=== PATIENT | male | born 1940 | race Caucasian/White ===

== ENCOUNTER → 2018-02-01 | Outpatient (CLI) | payer OTHER, BC ==
[~2018-02-01] MED LIST: ALFU10TA2 PO; BALS1CAP2 PO; DUTA0.5C PO; MULT60CA PO
[2018-02-01 16:37] LABS: BASO % 0.3 %; BASO ABS # 0.02 K/uL (0-0.2); EOS % 1.6 %; HEMOGLOBIN 16.6 g/dL (14.0-18.0); IG# 0.01 K/uL (0.00-0.02); LYMPH % 19.3 %; MEAN CELL VOLUME 91.4 fL (80-100); MEAN CORPUSCULAR HGB CONC 33.9 g/dl (32-36); MONO % 6.8 %; MONO ABS # 0.42 K/uL (0.11-0.59); NEUT % 71.8 %; NEUT ABS # 4.47 K/uL (1.4-6.5); PLATELET COUNT 190 K/uL (130-400); RED CELL DISTRIBUTION WIDTH CV 13.4 % (11.5-14.5); RED CELL DISTRIBUTION WIDTH SD 44.5 fL (36.4-46.3); WHITE BLOOD COUNT 6.22 K/uL (4.8-10.8)
--- NOTE | 2018-02-01 16:38 | DIAGNOSTIC IMAGING REPORT ---
TWO VIEW CHEST CLINICAL HISTORY: Preoperative examination. FINDINGS: PA and lateral chest radiographs are obtained. No prior studies are available for comparison at the time of dictation. The PA view is degraded by patient rotation The heart is enlarged. The pulmonary vasculature is noncongested. There is bibasilar atelectasis. No airspace consolidation or large pleural effusion is identified. There is no pneumothorax. The skeletal structures are osteopenic. The bony thorax appears intact. IMPRESSION: Cardiomegaly with no active disease in the chest. Electronically signed by: Diego Lowery M.D. 02/01/2018 4:36 PM Dictated Date/Time: 02/01/2018 4:36 PM
[2018-02-01 17:14] LABS: ALBUMIN 3.6 gm/dl (3.4-5.0); ALKALINE PHOSPHATASE 64 U/L (45-117); ALT/SGPT 27 U/L (12-78); AST/SGOT 20 U/L (15-37); BLOOD UREA NITROGEN 21 mg/dl (7-18); CALCIUM 9.2 mg/dl (8.5-10.1); CARBON DIOXIDE 29 mmol/L (21-32); GLUCOSE 94 mg/dl (70-99); SODIUM 138 mmol/L (136-145); TOTAL PROTEIN 7.7 gm/dl (6.4-8.2)
== END | disposition home or self-care (01) ==
LOC: C.CPL 16:00
PROVIDERS: ATTEND Urology
DX: N40.1 Benign prostatic hyperplasia with lower urinary tract symptoms (principal); I51.7 Cardiomegaly

== ENCOUNTER 2018-02-12 04:58 | Day surgery (SDC) | payer OTHER, BC ==
[2018-02-06 10:45] VITALS: Ht 175.3 cm; Wt 111.4 kg
[~2018-02-12] VITALS: Ht 175.3 cm; Wt 111.4 kg
[2018-02-12 05:29] VITALS: BP 158/87; PULSE 76; TEMP 36.7; O2SAT 96
[2018-02-12] MEDS ORDERED: LACTATED RINGER'S 1000ML 1,000 ML IV SCH (06:00)
--- NOTE | 2018-02-12 06:50 | History & Physical Bridge Note ---
H&P Re-Evaluation Bridge Note: I have examined the patient, reviewed the History & Physical and in the interval since the performance of the History & Physical I have noted the following changes of clinical significance: No changes noted
[2018-02-12] MEDS ORDERED: Cysto-Conray II 17.2% 250ML BOTTLE ONE (06:52)
[2018-02-12] MEDS ORDERED: NEOMYCIN/POLYMYX/HYDROCORT OT SUSP 10 ML BTL ONE (06:53)
[2018-02-12] MEDS ORDERED: LIDOCAINE HCL 2% 2 ML VIAL (20MG/ML) ONE (07:04)
[2018-02-12] MEDS ORDERED: PROPOFOL IV EMULSION 10 MG/ML 20 ML VIAL IV ONE (07:04)
[2018-02-12] MEDS ORDERED: FENTANYL CITRATE INJ 50 MCG/1 ML 2 ML VIAL ONE (07:04)
[2018-02-12] MEDS ORDERED: ONDANSETRON INJ 2 MG/ML 2 ML VIAL ONE (07:04)
[2018-02-12] MEDS ORDERED: MIDAZOLAM HCL 1 MG/ML 2ML VIAL ONE (07:04)
[2018-02-12] MEDS: CIPROFLOXACIN / D5W 400 MG IV SCH ×2 (07:24→07:25)
[2018-02-12] MEDS ORDERED: PHENYLEPHRINE 100MCG/ML 5ML SYR ONE (07:41)
[2018-02-12] MEDS ORDERED: EpHEDrine SULFATE 50MG/5ML SYR ONE (07:41)
[2018-02-12] MEDS ORDERED: OXYC-57 PO (08:21)
--- NOTE | 2018-02-12 08:21 | [facility] Post Operative Brief Note ---
Immediate Operative Summary Operative Date Feb 12, 2018. Pre-Operative Diagnosis Lower urinary tract symptoms with bladder stone Post-Operative Diagnosis Lower urinary tract symptoms with bladder stone Procedure(s) Performed Urethral Dilation; Cystoscopy; Cystolithopaxy Surgeon Dr. Mt Baptiste Line Production Cook Surgeon(s) None Estimated Blood Loss 0 mL Findings Consistent with Post-Op Diagnosis Specimens Permanent specimens A: Bladder Stone for chemical analysis Drains None Anesthesia Type General Complication(s) none Disposition Accompanied Pt To Recover: yes Disposition: Recovery Room / PACU
--- NOTE | 2018-02-12 08:22 | Discharge Instructions ---
Discharge Instructions Date of Service Feb 12, 2018. Visit Reason for Visit: Bladder Stone Discharge Discharge Diagnosis / Problem: Bladder stone Discharge Goals Goal(s): Therapeutic intervention Activity Recommendations Activity Limitations: per Instructions/Follow-up section Exercise/Sports Limitations: rest today May Resume Sexual Activity: when tolerated Shower/Bathe: no limitations Driving or Machine Use: resume 1 day after discharge Anesthesia . Post Anesthesia Instructions: If you have had General Anesthesia or IV Sedation: * Do not drive today. * Resume driving when surgeon permits. * Do not make important decisions or sign legal documents today. * Call surgeon for: 1. Temperature elevations greater than 101 degrees F. 2. Uncontrollable pain. 3. Excessive bleeding. 4. Persistent nausea and vomiting. 5. Medication intolerance (nausea, vomiting or rash). * For nausea and vomiting use only clear liquids such as: tea, soda, bouillon until nausea subsides, then gradually increase diet as tolerated. * If you have any concerns or questions, call your surgeon's office. If physician is unavailable and it is an emergency, call 911 or go to the nearest emergency room. . Diet Recommendations Recommended Home Diet: resume previous diet Procedures Procedures Performed: Urethral Dilation; Cystoscopy; Cystolithopaxy Pending Studies Studies pending at discharge: no Medical Emergencies . Who to Call and When: Medical Emergencies: If at any time you feel your situation is an emergency, please call 911 immediately. . Non-Emergent Contact Non-Emergency issues call your: Urologist Call Non-Emergent contact if: temperature is above 101.5, your pain is not controlled . . "Provider Documentation" section prepared by Mt Baptiste. . [place] Drug Monitoring Program Search Results: patient reviewed within database
[2018-02-12] MEDS ORDERED: ATROPINE SULFATE 0.1 MG/ML 5ML SYR IV PRN (08:30)
[2018-02-12] MEDS ORDERED: FENTANYL CITRATE INJ 50 MCG/1 ML 2 ML VIAL IV PRN (08:30)
[2018-02-12] MEDS ORDERED: ONDANSETRON INJ 2 MG/ML 2 ML VIAL IV PRN (08:30)
[2018-02-12] MEDS ORDERED: LABETALOL HCL IV 5 MG/ML 20ML IV PRN (08:30)
[2018-02-12] MEDS ORDERED: OXYCODONE/ACETAMINOPHEN 5-325 TAB PO PRN (08:30)
[2018-02-12 09:00] VITALS: BP 150/77; PULSE 67; TEMP 36.6; O2SAT 96
--- NOTE | 2018-02-12 09:26 | Anesthesiology Progress Note ---
Anesthesia Post Op Note Date & Time Feb 12, 2018 at 09:25 Vital Signs Pain Intensity: 0 Vital Signs Past 12 Hours Date Time Temp Pulse Resp B/P (MAP) Pulse Ox O2 Delivery O2 Flow Rate FiO2 02/12/18 08:52 66 13 02/12/18 08:52 66 13 94 02/12/18 08:51 137/84 02/12/18 08:51 137/84 02/12/18 08:47 66 16 94 02/12/18 08:47 66 16 02/12/18 08:47 66 16 02/12/18 08:47 66 16 94 02/12/18 08:46 142/79 02/12/18 08:45 66 14 95 02/12/18 08:45 66 14 02/12/18 08:41 136/84 02/12/18 08:40 64 16 02/12/18 08:40 64 16 99 02/12/18 08:38 36.5 65 17 136/84 (92) 99 Room Air 02/12/18 08:36 141/84 02/12/18 08:35 68 24 100 02/12/18 08:35 68 24 02/12/18 08:34 165/94 02/12/18 08:31 161/96 02/12/18 08:30 67 16 02/12/18 08:30 69 16 99 02/12/18 08:26 144/86 02/12/18 08:25 69 13 99 02/12/18 08:25 70 13 02/12/18 08:22 142/94 02/12/18 08:20 77 15 02/12/18 08:20 76 15 98 02/12/18 08:16 127/77 02/12/18 08:15 64 02/12/18 08:15 64 98 02/12/18 08:15 36.1 63 18 127/77 (92) 99 Oxymask 10 02/12/18 05:29 36.7 76 18 158/87 (110) 96 Room Air Notes Mental Status: alert / awake / arousable, participated in evaluation Pt Amnestic to Procedure: Yes Nausea / Vomiting: adequately controlled Pain: adequately controlled Airway Patency, RR, SpO2: stable & adequate BP & HR: stable & adequate Hydration State: stable & adequate Anesthetic Complications: no major complications apparent
[2018-02-12 09:30] VITALS: BP 166/81; PULSE 66; O2SAT 97
[2018-02-12] MEDS ORDERED: OXYCODONE/ACETAMINOPHEN 5-325 TAB ONE (09:30)
[2018-02-12 10:00] VITALS: BP 156/89; PULSE 63; TEMP 36.3; O2SAT 96
--- NOTE | 2018-02-12 10:01 | [facility] Operative Report ---
Operative Report Operative Date Feb 12, 2018. Pre-Operative Diagnosis Lower urinary tract symptoms with bladder stone Post-Operative Diagnosis Lower urinary tract symptoms with bladder stone Procedure(s) Performed Urethral Dilation; Cystoscopy; Cystolithopaxy Surgeon Dr. Mt Baptiste Stockroom Attendant Surgeon(s) None Estimated Blood Loss 0 mL Findings Patient had a tight fossa navicularis anterior urethra on cystoscopic exam was otherwise unremarkable prostatic fossa was obstructing with kissing lateral lobes and a very elevated median lobe. Bladder showed 1-2+ trabeculation with cellules there were no bladder tumors seen. There was a 12 mm bladder stone Specimens Permanent specimens A: Bladder Stone for chemical analysis Drains None Anesthesia Type General Complication(s) none Disposition yes Recovery Room / PACU Indications Patient is a 77-year-old white male who on workup for hematuria was found to have a bladder stone being brought in for cystolitholapaxy. Description of Procedure After the induction of an adequate general anesthetic and appropriate timeout patient was placed in the dorsal lithotomy position. Lower abdomen and genitalia were prepped with Hibiclens draped in sterile fashion. Fossa navicularis was tight so was dilated to 28 Czech with Maribel sounds. Next routine cystoscopic exam was performed with the above-noted findings with 30 and 70 lenses. Next a 24 Czech resection sheath and laser bridge were inserted per urethra into the bladder holmium laser was then used to fragment the stone into multiple small pieces which were then evacuated with an Vivox evacuator. After completing this the bladder was reinspected there were no sites of bleeding bladder was drained resection scope and sheath removed. All needle sponge and Ritsema counts were correct at the end of the case. Patient tolerated the procedure well and was taken to recovery room in stable condition I attest to the content of the Intraoperative Record and any orders documented therein. Any exceptions are noted below.
== END 2018-02-12 10:25 | disposition home or self-care (01) ==
LOC: C.ACU 04:58
PROVIDERS: ATTEND Urology
DX: R39.9 Unspecified symptoms and signs involving the genitourinary system (principal); N21.0 Calculus in bladder; N40.1 Benign prostatic hyperplasia with lower urinary tract symptoms; N13.9 Obstructive and reflux uropathy, unspecified; G47.33 Obstructive sleep apnea (adult) (pediatric); Z88.2 Allergy status to sulfonamides; Z85.828 Personal history of other malignant neoplasm of skin; Z90.89 Acquired absence of other organs; Z98.890 Other specified postprocedural states

== ENCOUNTER 2019-04-04 05:13 | Inpatient (IN) ==
--- NOTE | 2019-03-18 11:45 | Anesthesiology Consultation ---
Date of Service March 18, 2019 Assessment & Plan (1) Encounter for pre-operative examination: S/P cystolithopaxy= 03/11/19= LMA#5 at [facility] Chart Review Chart Review: Acceptable Risk for Surgery and Patient NOT seen in Pre Admission Testing History Surgery Operation Date: 04/04/19 12:10 Proposed Procedures p Robotic Assisted Laparoscopic Simple Prostatectomy - Anihs BranGinette Carpenter II, DO Height/Weight Height: 5 ft 10 in Weight: 115.6 kg Allergies Allergy/AdvReac Type Severity Reaction Status Date / Time lactose Allergy Intermediate INTOLERANCE Verified 03/18/19 10:36 Sulfa (Sulfonamide Allergy Unknown UNKNOWN - Verified 03/18/19 10:36 Antibiotics) A CHILD Medications Home Medications Medication Instructions Recorded Confirmed Last Taken PreserVision AREDS 1 tab PO BID 03/01/19 03/18/19 03/04/19 alfuzosin 10 mg PO QPM 03/01/19 03/18/19 03/10/19 17:00 balsalazide [Colazal] 3 tab PO TID 03/01/19 03/18/19 03/10/19 17:00 dutasteride [Avodart] 0.5 mg PO HS 03/01/19 03/18/19 03/10/19 17:00 oxycodone-acetaminophen [Percocet] 1 tab PO Q6H PRN #10 tab 03/11/19 03/18/19 Unknown Past Medical History Medical History Bladder stones Bowel disease ? IBS VS IBD- NO DEFINITIVE DIAGNOSIS Cancer BCC (BACK) Kidney cysts Obesity Sleep apnea CPAP Past Surgical History Surgical History History of bladder surgery CYSTOLITHOPAXY History of colonoscopy Social History Smoking Status: Never smoker Smoking cigarettes per day: 0 Do You Dip or Chew Tobacco: No Hx Alcohol Use: No Alcohol Intake Frequency Comment: 0 Hx Substance Use: No substance use type: does not use Testing Electrocardiogram Date: 03/05/19 SR with first degree AVB at 70 bpm. Chest X-Ray Date: 03/05/19 Findings: + NAD Moderate cardiomegaly. Otherwise negative study. Laboratory Results 03/05/19 WBC 5.00 H/H 15.6/45.8 PLATELETS 181 SODIUM 137 POTASSIUM 3.9 CHLORIDE 103 CO2 28 BUN 20 CREATININE 1.24 GLUCOSE 98 UA negative bacteria URINE CULTURE no growth
--- OUTSIDE RECORDS SUMMARY | 2019-04-04 05:16 | External Medical Summary | Continuity of Care Document ---
:1940 Author Name Dave Stovall, Provider Address Unavailable Unavailable , Care Team Providers Name Role Phone [email or web address]ish [place] II, [email or web address] [email or web address] CALI Unavailable Unavailable Unavailable Unavailable Unavailable Problems Arthritis (716.90) (M19.90) Nocturia (788.43) (R35.1) Bladder stones (594.1) (N21.0) Benign prostatic hyperplasia with urinary obstruction (600.0 1) (N40.1) Hematuria (599.70) (R31.9) Benign localized hyperplasia of prostate with urinary obstruction and lower urinary tract symptoms (600.91) (N40.1) Allergies and Adverse Reactions Sulfa Drugs (Allergy) Medications Advil TABS Refills: 0 Balsalazide Disodium CAPS Refills: 0 Alfuzosin HCl ER 10 MG Oral Tablet Exten ded Release 24 Hour; TAKE 1 TABLET Daily after supper Sia Baptiste Start: 27-Jul-2016 Quantity: 90 Refills: 3 Dutasteride 0.5 MG Oral Capsule; TAKE 1 CAPSULE BY MOUTH ONCE DAILY - GENERIC AVODART Sia Baptiste Start: 19-Dec-2017 Quantity: 90 Refills: 3 Procedures History of Tonsillectomy Status: Complet ed History of Throat Surgery Status: Comple tamiko Immunizations Immunizations not documented Family History Father Family history of Colon Cancer (V16.0) Status: Active Social History - Smoking Status Unknown if ever smoked Never smoker Plan of Treatment Planned Encounters Appointment; Anish Carpneter II, DO Start: 16-Apr-2019 13: 40 Request Planned Observations Planned Goals not documented Results Urine Culture 05-Mar-2019 9:19 URINE CULTURE CATH ORDERED PROCEDURE : Urine Culture; Speciment : Urine,Clean Catch Urine Culture : No growth - less than 1,000 colonies/mL. In-House UA (Urology) (Pending) Laboratory: In House 13-Mar-2019 13:14 VOID, CC, CATH CC Turbid, Clear, Hazy Clear Gluc 0 Prot 0 Nitrate 0 Leuk 0 Blood 3+ pH 6.0 MICROSCOPIC 15-18 RBC Encounters Appointment; Anish Carpenter II, DO 13-Mar-2019 13:15 Encounter Diagnosis: Problem not documented Appointment; Mt Baptiste M.D. 11-Mar-2019 8:00 Encounter Diagnosis: Problem not documented Appointment; Mt Baptiste M.D. 26-Feb-2019 13:30 Encounter Diagnosis: Problem not documented Appointment; Urology, Room 8 26-Feb-2019 13:15 Encounter Diagnosis: Problem not documented Appointment; Mt Baptiste M.D. 30-Jan-2019 16:00 Encounter Diagnosis: Problem not documented Appointment; Mt Baptiste M.D. 27-Aug-2018 16:00 Encounter Diagnosis: Problem not documented Appointment; Mt Baptiste M.D. 27-Feb-2018 10:30 Encounter Diagnosis: Problem not documented Appointment; Mt Baptiste M.D. 12-Feb-2018 8:00 Encounter Diagnosis: Problem not documented Appointment; Mt Baptiste M.D. 01-Feb-2018 15:30 Encounter Diagnosis: Problem not documented Appointment; Urology, Room 7 01-Feb-2018 15:20 Encounter Diagnosis: Problem not documented Appointment; Mt Baptiste M.D. 19-Dec-2017 11:00 Encounter Diagnosis: Problem not documented Appointment; Shakir De Leon M.D. 01-Dec-2017 9:50 Encounter Diagnosis: Problem not documented Appointment; Shakir De Leon M.D. 26-Jul-2017 11:40 Encounter Diagnosis: Problem not documented Appointment; Anish Carpenter II, DO 16-Apr-2019 13:40 Encounter Diagnosis: Problem not documented
[2019-04-04] MEDS ORDERED: CEFAZOLIN 2000MG 2,000 MG/15 ML SYR IV SCH (06:00)
[2019-04-04] MEDS ORDERED: LR 15ML/HR IV SCH (06:00)
[2019-04-04] MEDS ORDERED: NEOSTIGMINE METHYLSULFATE 5 MG/5 ML SYR ONE (06:59)
[2019-04-04] MEDS ORDERED: PHENYLEPHRINE HCL 10 MG/ML VIAL ONE (06:59)
[2019-04-04] MEDS ORDERED: LIDOCAINE HCL 2% 2 ML VIAL/AMP(20MG/ML) INFIL ONE (06:59)
[2019-04-04] MEDS ORDERED: SUCCINYLCHOLINE CHLORIDE 20 MG/ML 10 ML VIAL ONE (06:59)
[2019-04-04] MEDS ORDERED: PROPOFOL IV EMULSION 10 MG/ML 20 ML VIAL IV ONE (06:59)
[2019-04-04] MEDS ORDERED: ePHEDrine sulfate 50 MG/ML AMP ONE (06:59)
[2019-04-04] MEDS ORDERED: fentaNYL citrate 100 MCG/2 ML VIAL ONE ×4 (06:59→16:44)
[2019-04-04] MEDS ORDERED: GLYCOPYRROLATE 0.2 MG/ML VIAL ONE (06:59)
[2019-04-04] MEDS ORDERED: ONDANSETRON INJ 2 MG/ML 2 ML VIAL ONE (06:59)
[2019-04-04] MEDS ORDERED: MIDAZOLAM HCL 1 MG/ML 2ML VIAL ONE (06:59)
[2019-04-04] MEDS ORDERED: DEXAMETHASONE SOD INJ 4 MG/ML VIAL ONE (06:59)
[2019-04-04] MEDS ORDERED: BUPIVACAINE 0.5 % 5 MG/1 ML MPF 30ML VIAL ONE (07:04)
[2019-04-04] MEDS ORDERED: DEXAMETHASONE SOD INJ 4 MG/ML VIAL IV PRN (07:22)
[2019-04-04] MEDS ORDERED: PROMETHAZINE HCL 12.5 MG in SODIUM CHLORIDE 0.9% 50 ML IV PRN (07:22)
[2019-04-04] MEDS ORDERED: ePHEDrine sulfate 50 MG/ML AMP IV PRN (07:22)
[2019-04-04] MEDS ORDERED: ATROPINE SULFATE 0.1 MG/ML 10ML SYR IV PRN (07:22)
[2019-04-04] MEDS ORDERED: ONDANSETRON INJ 2 MG/ML 2 ML VIAL IV PRN ×2 (07:22→14:47)
[2019-04-04] MEDS ORDERED: HYDROmorphone INJ 2 MG/ML SYR/VIAL IV PRN (07:22)
--- NOTE | 2019-04-04 07:23 | History & Physical Bridge Note ---
Date of Service April 04, 2019 History & Physical Bridge Note I have examined the patient, reviewed the History & Physical and in the interval since the performance of the History & Physical I have noted the following changes of clinical significance: no changes noted
[2019-04-04] MEDS ORDERED: BACITRACIN INJ 50,000 UNIT VIAL ONE (08:17)
[2019-04-04] MEDS ORDERED: HYDROmorphone INJ 2 MG/ML SYR/VIAL ONE ×2 (08:32→14:20)
[2019-04-04] MEDS ORDERED: SURGICEL ABSORB HEMOSTAT 2IN X 14IN TOP ONE (11:17)
[2019-04-04] MEDS ORDERED: ACETAMINOPHEN 1000 MG/100 ML IV IV ONE (11:42)
[2019-04-04] MEDS ORDERED: ROCURONIUM BROMIDE 10 MG/ML 5 ML VIAL ONE (11:52)
[2019-04-04] MEDS ORDERED: CEFAZOLIN 250 MG/ML 1 GM VIAL ONE ×2 (11:56→11:58)
--- NOTE | 2019-04-04 12:45 | XRay Report ---
KUB HISTORY: MISSING SUTURE - COUNT COMPARISON: Chest radiographs 03/05/2019. FINDINGS: Limited study secondary to body habitus and portable technique with portions of the lateral abdomen e xcluded from the [id number]. Gas-filled mildly prominent loops of small bowel about the central ab domen. Surgical drainage catheter projects over the right hemipelvis. Pelvic basin calcifications are suggestive of phleboliths. No definite retained foreign body identified. No acute fracture. IMPRESSION: Limited study without opaque foreign body identified. Electronically signed by: Tejas Bush M.D. 04/04/2019 12:43 PM
--- NOTE | 2019-04-04 12:52 | Post Operative Brief Note ---
Immediate Post Op Note v1 Date of Surgery April 04, 2019 Pre & Post Diagnosis Operation Date: 04/04/19 07:30 Pre-Op Diagnosis: Benign Prostatic Hyperplasia with Urinary Obstruct Post-Op Diagnosis: Benign Prostatic Hyperplasia with Urinary Obstruct Procedure Operation Date: 04/04/19 07:30 Actual Procedures p Robotic Assisted Laparoscopic Simple Prostatectomy(Not Applicable) - Anish Carpenter II, DO Surgeon Anish Carpenter, II, DO Securities Adviser Irene Livingston Estimated Blood Loss 400 Findings Consistent with Post-Op Diagnosis Specimens Prostate adenoma Drains Davenport Catheter (22 [address] # [address] catheter) and Jp-Lowe Drain (10Fr Cristhian) Anesthesia Type General Complications none Disposition Disposition: Recovery Room Overlapping Procedure I was present for: the critical portions of procedure. I was immediately available: during the entire case. Back up surgeon: was not required during procedure.
[2019-04-04] MEDS: fentaNYL citrate 100 MCG/2 ML VIAL IV PRN ×4 (13:35→13:50)
[2019-04-04 13:46] LABS: Basophils # (auto) 0.01 K/uL (0-0.2); Basophils % (auto) 0.1 %; Hematocrit (blood only) 45.9 % (42-52); Hemoglobin 15.6 g/dL (14.0-18.0); Immature Granulocytes # (auto) 0.06 K/uL (0.00-0.02); Immature Granulocytes % (auto) 0.4 %; Lymphocytes # (auto) 0.91 K/uL (1.2-3.4); Lymphocytes % (auto) 5.9 %; Mean Corpuscular Volume 90.2 fL (80-100); Mean Platelet Volume 9.5 fL (7.4-10.4); Monocytes # (auto) 0.12 K/uL (0.11-0.59); Monocytes % (auto) 0.8 %; Neutrophils # (auto) 14.43 K/uL (1.4-6.5); Neutrophils % (auto) 92.8 %; Platelet Count 218 K/uL (130-400); RDW Coefficient of Variation 13.2 % (11.5-14.5); RDW Standard Deviation 43.4 fL (36.4-46.3); Red Blood Count 5.09 M/uL (4.7-6.1); White Blood Count 15.53 K/uL (4.8-10.8)
[2019-04-04 14:02] LABS: BUN Creatinine Ratio 13.5 (10-20); Calcium 8.6 mg/dl (8.5-10.1); Creatinine Clr Calc Pharmacy 58.5 ml/min; Est GFR (African American) 59.3; Est GFR (Non-African American) 51.2; Potassium 4.4 mmol/L (3.5-5.1)
[2019-04-04] MEDS ORDERED: OXYCODONE HCL IR 5 MG TAB (IMMEDIATE RELEASE) PO PRN ×2 (14:47)
--- NOTE | 2019-04-04 15:18 | Anesthesiology Progress Note ---
Date of Service April 04, 2019 Anesthesia Post Procedure Vital Signs Vital Signs: Temp Pulse Pulse Resp BP BP Pulse Ox 04/04/19 15:15 36.7 C 86 16 144/82 H 96 04/04/19 14:05 36.8 C 81 18 121/87 95 04/04/19 13:55 86 18 114/86 95 04/04/19 13:45 83 18 135/96 94 04/04/19 13:35 94 H 18 157/94 H 98 04/04/19 13:25 90 18 159/92 H 97 04/04/19 13:15 37.1 C 96 H 18 178/105 H 98 04/04/19 06:11 37 C 71 20 166/96 H Transfer of Care Handoff Completed per policy Notes Mental Status: alert / awake / arousable and participated in evaluation Patient Amnestic to Procedure: Yes Nausea / Vomiting: adequately controlled Pain: adequately controlled Airway Patency, RR, SpO2: stable & adequate BP & HR: stable & adequate Hydration State: stable & adequate Anesthetic Complications: no major complications apparent
[2019-04-04 16:13] LABS: Partial Thromboplastin Ratio 0.9; Partial Thromboplastin Time 23.9 Seconds (21.0-31.0); Prothrombin Time 10.6 Seconds (9.0-12.0)
[2019-04-04] MEDS: MoRPHine SULFATE 10 MG/ML CARP/VIAL IV PRN ×2 (16:28→21:54)
[2019-04-04] MEDS: CEFAZOLIN 2000MG 2,000 MG/15 ML SYR IV SCH (17:21)
[2019-04-04] MEDS: LACTATED RINGER'S 1,000 ML IV SCH (17:30)
[2019-04-04] MEDS: ACETAMINOPHEN 1,000 MG/100 ML VIAL IV PRN (18:42)
[2019-04-04] MEDS: FAMOTIDINE 20 MG in SYRINGE 3 ML IV SCH (21:29)
[2019-04-04] MEDS: HEPARIN SOD 5,000 UNIT/0.5 ML VIAL SQ SCH (21:30)
[2019-04-04] MEDS: DOCUSATE SODIUM 100 MG CAP PO SCH (21:30)
[2019-04-04] MEDS: ALFUZOSIN HCL 10 MG TAB PO SCH (21:31)
[2019-04-05] MEDS: CEFAZOLIN 2000MG 2,000 MG/15 ML SYR IV SCH ×2 (00:07→06:52)
[2019-04-05] MEDS: MoRPHine SULFATE 10 MG/ML CARP/VIAL IV PRN ×2 (03:03→06:25)
[2019-04-05] MEDS: LACTATED RINGER'S 1,000 ML IV SCH ×3 (03:05→20:00)
[2019-04-05] MEDS: FAMOTIDINE 20 MG in SYRINGE 3 ML IV SCH ×2 (06:51→19:58)
[2019-04-05 08:21] LABS: Basophils # (auto) 0.01 K/uL (0-0.2); Basophils % (auto) 0.1 %; Eosinophils # (auto) 0.01 K/uL (0-0.5); Eosinophils % (auto) 0.1 %; Hemoglobin 13.1 g/dL (14.0-18.0); Immature Granulocytes # (auto) 0.02 K/uL (0.00-0.02); Immature Granulocytes % (auto) 0.2 %; Lymphocytes # (auto) 0.99 K/uL (1.2-3.4); Lymphocytes % (auto) 9.9 %; Mean Corpuscular Hgb Conc 33.6 g/dL (32-36); Mean Corpuscular Volume 90.1 fL (80-100); Mean Platelet Volume 9.5 fL (7.4-10.4); Monocytes # (auto) 0.69 K/uL (0.11-0.59); Monocytes % (auto) 6.9 %; Neutrophils # (auto) 8.28 K/uL (1.4-6.5); Neutrophils % (auto) 82.8 %; Platelet Count 185 K/uL (130-400); RDW Coefficient of Variation 13.3 % (11.5-14.5); Red Blood Count 4.33 M/uL (4.7-6.1)
[2019-04-05 08:41] LABS: BUN Creatinine Ratio 17.4 (10-20); Calcium 8.1 mg/dl (8.5-10.1); Est GFR (African American) 76.3; Est GFR (Non-African American) 65.9; Potassium 4.2 mmol/L (3.5-5.1)
[2019-04-05] MEDS: HEPARIN SOD 5,000 UNIT/0.5 ML VIAL SQ SCH ×2 (08:57→20:00)
[2019-04-05] MEDS: DOCUSATE SODIUM 100 MG CAP PO SCH ×2 (08:57→20:00)
--- NOTE | 2019-04-05 09:38 | Urology Progress Note ---
Date of Service April 05, 2019 Assessment & Plan (1) BPH w urinary obs/LUTS: POD #1 s/p robot assist simple prostatectomy. Patient progressing. Pain not well controlled. Will add B&O suppository as needed. CBI running low, clamp as tolerated. Ambulation with nursing staff encouraged. Likely discharge tomorrow with continued improvement. Will discharge with 20 day course of antibiotic coverage per Dr. Carpenter. Subjective 78YO male POD #1 s/p simple RALP. Patient reports some pain, only somewhat controlled with medication. Has not been up ambulating much. No fevers/chills. No nausea/vomiting. Tolerating diet. Is passing gas. CBI running very low. Review of Systems Review of Systems: All systems reviewed & are unremarkable except as noted in HPI & below Physical Exam Physical Exam: WN/WD NAD +obese +fatigue. Resp effort normal. No JVD. Abd soft +diffusely tender. : Davenport in place, CBI intact running slow. Urine dark pink, catheter patent, no clot noted. Bladder nondistended. A&O x 3, appropriate affect. Results & Data Vital Signs (Past 12 Hours) Vital Signs Temp Pulse Pulse Resp BP BP Pulse Ox 04/05/19 07:30 36.8 C 74 20 146/76 H 95 04/05/19 02:46 36.7 C 61 14 131/78 95 04/04/19 23:12 36.7 C 60 14 135/76 95
[2019-04-05] MEDS ORDERED: BELLADONNA/OPIUM SUPP 60 MG SUPP PR PRN (09:39)
--- NOTE | 2019-04-05 12:35 | Operative Report ---
Post Operative Report Pre & Post Diagnosis Operation Date: 04/04/19 07:30 Pre-Op Diagnosis: Benign Prostatic Hyperplasia with Urinary Obstruct Post-Op Diagnosis: Benign Prostatic Hyperplasia with Urinary Obstruct Procedure Operation Date: 04/04/19 07:30 Actual Procedures p Robotic Assisted Laparoscopic Simple Prostatectomy(Not Applicable) - Anish Carpenter II, DO Surgeon Anish Carpenter, II, DO [place] [employer] Irene Sidhu Estimated Blood Loss 400 Findings Consistent with Post-Op Diagnosis Extremely large left lateral enlargement with displacement of bladder and prostate. Specimens Prostate Adenoma. Drains 10 Fr Flat drain [address] Anesthesia Type General Complications none Disposition Disposition: Recovery Room Indications Recurrent bladder stones with large obstructing prostate. Risks and benenfits discussed at length. Description of Procedure The patient was brought to the operative suite and placed under general endotracheal intubation anesthesia in the supine position. The patient was transferred to the dorsal lithotomy position. At this point, the patient prepped and draped in the usual sterile fashion and a timeout was completed. Preoperative antibiotics of Ancef 3 grams had been given. SUKHJINDER's and SCD's were placed on the patient's lower extremities. A catheter was placed using sterile technique. With the time out completed the patient was placed into Trendelenburg and the skin at the umbilicus was anesthetized. A small incision was made superior to the umbilicus. A Varess needle was placed and flushed and aspirated. NO issues or concerns. The gas was turned on and attached and the abdomen insufflated. A camera port was placed. The cavity was insufflated to 15mmHG. A laparoscopic camera was placed and the abdominal cavity inspected. No concerning features were noted. At this point, the skin was marked for port placement and 8mm working ports were placed. The skin was anesthetized down to fascia and an approx 1cm incision was made to place the 3 x 8mm ports. A 10mm and 5 mm senior executive assistant ports were also placed in similar fashion under direct visualization. The patient was transferred into steep Trendelenburg position and the legs lowered. The robot was positioned and docked. The camera was placed and all trocars were positioned under direct visualization. Irene Sidhu was integral in port placement, camera utilization, and docking procedure. She remained in sterile attire and then proceeded to acquisitions assistant the remainder of the case. At this point, I transitioned to the robotic console. The sigmoid colon was mobilized superiorly and the pelvis assessed. Adhesions were freed to allow mobilization. Significant adhesions were noted from the colon on the left. The bladder was then filled with saline and distended. The peritoneum in the midline was opened at the dome of the bladder. The layers were dissected down until mucosa was visualized. This was then opened sharply. The bladder was drained. The opening was then opened further. The trigone was identified as well as the very large prostate with mass effect causing displacement due to the large left lateral lobe. The four corners of the cystotomy were then sutured with a 2-0 Vicryl and anchored to the anterior abdominal peritoneum using hemolock clips. This allowed better access and movement into the cystotomy. The prostate was manipulated. Along the 6 oclock position, the bladder neck was opened and the avascular plane devoloped posterior to the prostate. This was dissected distally. The left lobe caused such mass effect that the right was difficult to dissect. The dissection was therefore taken along the left lateral bladder neck keeping within the plane of the transition zone prostate. The very large adenoma was sutured with a 2-0 Vicryl to allow further mobility and manipulation of the tissues during dissection. The 3rd robotic arm was used to hold this suture. The dissection continue distally until around the large adenoma. A section of adenoma was released and set aside. The suture had to be replaced wth another 2-0 vicryl due to this. This occurred a second time during the dissection and again a 2-0 vicryl was used. The dissection was carried around the prostate adenoma on both sides until a transition was noted and the distal prostatic urethra opened sharply. The entire dissection process was limited and slowed largely due to the significant left lobe and its mass effect. This prolonged the entire surgery. The Adenoma was then dissected free from all remaining attachments. This along with the adenoma that had removed seperately were placed into an endocatch bag. The resection bed was packed with surgicel sheet. All bleeding had been controlled during this time and during dissection with cautery. The resection bed was then inspected. Bleeding had been controlled. The hoang used during dissection was removed and a new [address] catheter was placed. The balloon was inflated to 30cc. This was positioned within the bladder. The four tacking sutures were removed. The needles on the 3 sutures on the adenoma used for retraction were also removed. A count was completed and this was found to be off with one needle more on the documents then were on the field or packets that were opened. This was confirmed with multiple counts. This appeared to be a documentation error, but a KUB was ordered and done before closure after undocking. This did not show any unexpected foreign bodies. The bladder was then closed using a 3-0 v-lock suture in a running fashion on the mucosa. A 2-0 V-lock was used to close the muscle in a running umbricated fashion. The peritoneum was also closed with the 2-0 v-lock in a running fashion. This was leak tested and no leaking or concerning features. The entire area was inspected. No issues or concerns. NO foreign bodies. All fluid was suctioned from the bladder irrigation. The hoang was set to irrigation and did well without issues. The entire space was inspected one final time. No bleeding or injuries or areas of concern were noted. No tumor or other concerning features were noted. A 10 Fr flat drain was placed through the right lateral port and positioned into the pelvis. At this point, the robot was undocked and moved away from the patient. The patient was taken out of Trendelenberg. The port sites were all assessed laparoscopically. The endoscopic bag was moved into the midline port. The other ports were assessed and no issues observed. The umbilical incision was opened further exposing fascia which was then opened in order to removed the prostate adenoma in the endocatch bag. The prostate was removed. A running PDS suture was used to close fascia. The skin at each site was closed with a running Monocryl suture. The drain was secured at the skin level with a 2-0 silk suture. The area was cleaned and glue placed on each incision. KUB prior to closure showed no unexpected foreign bodies. The drain and hoang were visable. The hoang was set to drainage. The patient was cleaned and bandaged. The patient was further cleaned, aroused from anesthesia, and transferred to the pacu in stable condition having tolerated the procedure well with no complications. I was present and participated in all aspects of the procedure. JODY Jorge was critical during the entire procedure and was involved and assisting with all portions mentioned above. I attest to the content of the Intraoperative Record and any orders documented therein. Any exceptions are noted below.
[2019-04-05] MEDS: ACETAMINOPHEN 1,000 MG/100 ML VIAL IV PRN (16:07)
[2019-04-05] MEDS: ALFUZOSIN HCL 10 MG TAB PO SCH (20:01)
[2019-04-06] MEDS: ACETAMINOPHEN 1,000 MG/100 ML VIAL IV PRN (05:30)
[2019-04-06] MEDS: LACTATED RINGER'S 1,000 ML IV SCH (05:33)
[2019-04-06] MEDS: FAMOTIDINE 20 MG in SYRINGE 3 ML IV SCH (06:37)
[2019-04-06 07:02] LABS: Basophils # (auto) 0.02 K/uL (0-0.2); Basophils % (auto) 0.3 %; Eosinophils # (auto) 0.06 K/uL (0-0.5); Eosinophils % (auto) 0.8 %; Hematocrit (blood only) 36.9 % (42-52); Hemoglobin 12.3 g/dL (14.0-18.0); Immature Granulocytes # (auto) 0.03 K/uL (0.00-0.02); Immature Granulocytes % (auto) 0.4 %; Lymphocytes # (auto) 0.81 K/uL (1.2-3.4); Lymphocytes % (auto) 10.7 %; Mean Corpuscular Hgb Conc 33.3 g/dL (32-36); Mean Corpuscular Volume 90.2 fL (80-100); Mean Platelet Volume 9.7 fL (7.4-10.4); Monocytes # (auto) 0.56 K/uL (0.11-0.59); Monocytes % (auto) 7.4 %; Neutrophils # (auto) 6.08 K/uL (1.4-6.5); Neutrophils % (auto) 80.4 %; Platelet Count 183 K/uL (130-400); RDW Coefficient of Variation 13.5 % (11.5-14.5); RDW Standard Deviation 44.2 fL (36.4-46.3); Red Blood Count 4.09 M/uL (4.7-6.1); White Blood Count 7.56 K/uL (4.8-10.8)
[2019-04-06 07:46] LABS: BUN Creatinine Ratio 16.1 (10-20); Calcium 8.3 mg/dl (8.5-10.1); Creatinine Clr Calc Pharmacy 82.8 ml/min; Est GFR (African American) 90.3; Est GFR (Non-African American) 77.9; Potassium 3.7 mmol/L (3.5-5.1)
[2019-04-06] MEDS: DOCUSATE SODIUM 100 MG CAP PO SCH (09:07)
[2019-04-06] MEDS: HEPARIN SOD 5,000 UNIT/0.5 ML VIAL SQ SCH (09:29)
--- NOTE | 2019-04-06 09:49 | Urology Progress Note ---
Date of Service April 06, 2019 Assessment & Plan (1) BPH w urinary obs/LUTS: BPH status post robotic simple prostatectomy Urine remains relatively clear despite having CBI clamped Plan for DC of drain todaylow output DC home after lunch presuming he continues to do well Subjective Feels he is making good progress He still has some pain, but he is ambulatory and tolerating a diet No major issues from a urinary standpoint overnight, CBI remained clamped Would like to go home Review of Systems Review of Systems: All systems reviewed & are unremarkable except as noted in HPI & below Physical Exam Physical Exam: Incisions appropriate RAN with minimal output, serosanguineous Urine, cranberry juice colored in the tubing, clears immediately after turning on CBI Minimal edema Results & Data Vital Signs (Past 12 Hours) Vital Signs Temp Pulse Pulse Resp BP Pulse Ox 04/06/19 07:01 36.3 C L 73 16 141/80 H 92 04/05/19 23:07 36.3 C L 76 16 152/77 H 95
--- NOTE | 2019-04-15 06:55 | Discharge Summary ---
Date of Service April 06, 2019 Admission HPI Per Admitting Provider See Admission Note for full HPI Admission Exam Per Admitting Provider See Admission Exam Principal Diagnosis BPH with obstruction. Discharge Exam Constitutional + obese ENMT Mouth: no TMJ abnormality, no dentures, no chipped teeth and no loose teeth Mallampati Class: II Neck normal visual inspection Respiratory normal respiratory effort Auscultation: lungs clear to auscultation bilaterally Cardiovascular Rate/Rhythm: regular rate and regular rhythm Neurologic moves all extremities Psychiatric Orientation: alert and oriented x 3 Discharge Data Allergies Allergy/AdvReac Type Severity Reaction Status Date / Time lactose Allergy Intermediate INTOLERANCE Verified 04/04/19 06:07 Sulfa (Sulfonamide Allergy Unknown UNKNOWN - Verified 04/04/19 06:07 Antibiotics) A CHILD Procedures Performed Operation Date: 04/04/19 07:30 Actual Procedures p Robotic Assisted Laparoscopic Simple Prostatectomy(Not Applicable) - Anish Carpenter II, DO Hospital Course (1) BPH w urinary obs/LUTS: BPH status post robotic simple prostatectomy Urine remains relatively clear despite having CBI clamped Plan for DC of drain todaylow output DC home after lunch presuming he continues to do well Total Time Total Time Spent Total Time Spent (In Minutes): 15 Discharge Plan Discharge Items Patient Disposition: Home - Self-Care Reason For Visit: Benign Prostatic Hyperplasia with Urinary Obstruct Discharge Diagnosis: BPH with urinary obstruction Discharge Goals: Improve disease control and Therapeutic intervention Activity: Per 'Additional Instructions' section Lifting: No more than 10 pounds Bathing Comment: Sponge bath only. Do not scrub/pick surgical glue. Sexual Activity: Wait until after follow-up appointment Exercise Comment: Walking and stairs in your home are OK. Driving/Machine Use Comment: No driving while taking Narcotic pain medication. Non-emergency contact: Urologist Call non-emergency contact if: you have any medication questions, your temperature is above 101, your wound has increased redness, your wound has in creased drainage and your wound pain has increased Follow-up/Referrals: Cesilia Schmidt CRNP [Primary Care Provider] - Diet: Lactose Intolerant Addtl Provider Instructions: Please keep all follow up appointments at Urology office as scheduled. Please call office at [phone] with any questions or concerns. Pain: take pain medication (Tylenol #3) every 6 hours as needed. Do not take any other Tylenol-containing products with this medication. Bowels: take stool softener (Colace) twice daily for 2 weeks, then as needed for constipation. Antibiotic: Take twice daily as prescribed for 20 days total. Due to long course, we have also sent a prescription for a probiotic - take this daily. Drains: Clean [place] catheter (in your urethra) twice daily with soap and water. Change RAN drain (in your abdomen) dressing as needed. Keep this covered. You can shower after this drain is removed next week, sponge baths only in the meantime. Prescriptions: New acetaminophen-codeine [Tylenol-Codeine #3] 300-30 mg tablet 1 tab PO Q6H PRN (Reason: pain) Qty: 14 RF: 0 docusate sodium [Colace] 100 mg capsule 100 mg PO BID PRN (Reason: constipation) Qty: 60 RF: 0 ciprofloxacin HCl [Cipro] 250 mg tablet 250 mg PO BID Qty: 40 RF: 0 Align 4 mg capsule 4 mg PO DAILY Qty: 20 RF: 0 Continued dutasteride [Avodart] 0.5 mg Capsule 0.5 mg PO HS RF: 0 PreserVision AREDS [id number] Tablet 1 tab PO BID RF: 0 balsalazide [Colazal] 750 mg Capsule 3 tab PO TID RF: 0 oxycodone-acetaminophen [Percocet] 5-325 mg tablet 1 tab PO Q6H PRN (Reason: pain) Qty: 10 RF: 0 Discontinued alfuzosin 10 mg Tablet Extended Release 24 Hr 10 mg PO QPM RF: 0 Stand-Alone Forms: [facility] Discharge Orders: Discharge Order (Routine); Ordered 04/06/19 Ordered By: Rodolfo Sher Admission Data Admit Date/Time: 04/04/19 12:59 Attending Provider: Anish Carpenter II Admit Provider: Anish Carpenter II Primary Care Provider: Cesilia Schmidt Service: Surgical Services Other Interventions: Discharge Summary Assessment (RN) Last Done: 04/06/19 14:02 DC Date/Time DO NOT enter until pt leaves facility: 04/06/19 14:40
== END 2019-04-06 14:40 | disposition home or self-care (01) | DRG 713 ==
LOC: ASU 05:13 → 3W 12:59
DX: N40.1 Benign prostatic hyperplasia with lower urinary tract symptoms; N21.0 Calculus in bladder; N13.8 Other obstructive and reflux uropathy; R35.1 Nocturia; R31.9 Hematuria, unspecified